=== PATIENT | male | born 1985 | race Caucasian/White ===

== ENCOUNTER 2016-12-12 10:30 | Day surgery (SDC) | payer BC ==
[2016-12-10 14:38] VITALS: BMI 27.4
[~2016-12-12 10:30] MED LIST: DEXAMETHASONE SOD PHOSPHATE 10 MG/ML 1 ML VIAL IV ONE; HEPARIN SODIUM,PORCINE 5,000 UNIT/ML 1 ML VIAL SQ ONE; HYDROmorphone 1 MG/ML 1 ML SYRINGE IVP PRN; LACTATED RINGERS 1,000 ML IV SCH; LIDOCAINE 1% 20 ML VIAL (10MG/ML) FOR IV START INTRADERMA PRN; MIDAZOLAM 2 MG/2 ML VIAL IV PRN; ONDANSETRON 4 MG/2 ML VIAL IVP ONE; Pre Op ABX Message 1 EACH MISC MISCELLANE ONE; SCOPOLAMINE 1.5MG/72HR PATCH TRANSDERM ONE
[2016-12-12 12:48] VITALS: TEMP 98
--- NOTE | 2016-12-12 13:04 | P.GSHP ---
History of Present Illness H&P Date: 12/12/16 Chief Complaint: Multiple sebaceous cysts of scalp and left cheek This is a 31-year-old male who presents today for excision of sebaceous cyst of right and left posterior scalp and left cheek. The patient states the cystoscopy grown over the last year. - Constitutional Constitutional: Reports as per HPI Past Medical History Past Medical History: No Reported History History of Any Multi-Drug Resistant Organisms: None Reported Past Surgical History: No Surgical Hx Reported Additional Past Surgical History / Comment(s): wisdom teeth extracted Past Anesthesia/Blood Transfusion Reactions: Unable to Obtain Additional Past Anesthesia/Blood Transfusion Reaction / Comment(s): never had anesthesia Past Psychological History: No Psychological Hx Reported Smoking Status: Never smoker Past Alcohol Use History: None Reported Past Drug Use History: None Reported - Past Family History Mother Family Medical History: No Reported History Medications and Allergies Home Medications Medication Instructions Recorded Confirmed Type No Known Home Medications [No 12/10/16 12/10/16 History Known Home Medications] Allergies Allergy/AdvReac Type Severity Reaction Status Date / Time No Known Allergies Allergy Verified 12/10/16 14:24 Surgical - Exam Vital Signs Temp Pulse Resp BP Pulse Ox 98.0 F 90 18 120/90 98 12/12/16 12:46 12/12/16 12:46 12/12/16 12:46 12/12/16 12:46 12/12/16 12:46 - General well developed, no distress - Eyes PERRL - ENT normal pinna - Neck no masses - Respiratory normal expansion - Abdomen Abdomen: soft - Neurologic 3 cm sebaceous cyst of left posterior scalp, 2 cm sebaceous cyst of right posterior scalp, 1 cm sebaceous cyst of left cheek Assessment and Plan Plan: Multiple sebaceous cysts of scalp and left cheek. We'll perform excision.
[2016-12-12] MEDS ORDERED: BUPIVACAIN-EPI 0.25%-1:200,000 30 ML VIAL SQ ONE (13:23)
[2016-12-12] MEDS ORDERED: PROPOFOL 10 MG/ML 20 ML VIAL IV ONE (13:28)
[2016-12-12] MEDS ORDERED: MIDAZOLAM 2 MG/2 ML VIAL ONE (13:28)
[2016-12-12] MEDS ORDERED: fentaNYL (PF) 50 MCG/ML 2 ML AMP ONE (13:28)
[2016-12-12] MEDS ORDERED: SODIUM CHLORIDE 0.9% 50 ML with ceFAZolin 2,000 MG IV ONE ×2 (13:45)
--- NOTE | 2016-12-12 14:10 | P.OP ---
Date of Procedure: 12/12/16 Preoperative Diagnosis: Sebaceous cyst of right scalp, left scalp and left cheek Postoperative Diagnosis: Sebaceous cyst of right scalp left scalp and left cheek Procedure(s) Performed: Excision of sebaceous cyst of left scalp, right scalp and left cheek Anesthesia: MAC Surgeon: Brando Womack Estimated Blood Loss (ml): 5 Pathology: other (Multiple sebaceous cysts) Condition: stable Disposition: PACU Description of Procedure: The patient's placed on the operating table in the supine position. He received IV sedation. His left cheek, right scalp and left scalp were prepped and draped usual sterile fashion. The skin incision sites were anesthetized 1% local Xylocaine. The left cheek sebaceous cyst was excised first. Using 11 blade a skin incision was made over this cyst. The cyst measured 170 diameter. And then using sharp dissection with Metzenbaum scissors the cyst was excised. The Bovie hemostasis. Skin was closed with interrupted 3-0 Monocryl suture. Next the left posterior scalp sebaceous cyst was excised. The cyst measured approximately 3 cm diameter. Using blunt and sharp dissection and electrocautery the cyst was excised. The skin was closed interrupted 3-0 Monocryl suture. Next the posterior right scalp sebaceous cyst was excised. The skin was incised over the cyst and then the cyst was dissected using blunt and sharp dissection. The cyst measured present 1 cm diameter. Skin was closed interrupted 3-0 Monocryl suture. Dermabond was applied. Patient was sent to recovery in stable condition.
[2016-12-12 14:25] VITALS: RESP 16
[2016-12-12 14:54] VITALS: BP 115/77; PULSE 67
== END 2016-12-12 15:43 | disposition home or self-care (01) ==
LOC: OR 10:30
PROVIDERS: ATTEND Surgery
DX: L72.11 Pilar cyst (principal); D23.39 Other benign neoplasm of skin of other parts of face
CPT/HCPCS: 11423; 11421; 11441; 88304; 88305; J2250; J1644; J1100; J2405; J3010; J0690; J2704